=== PATIENT | female | born 1985 | race Caucasian/White ===

== ENCOUNTER 2023-12-26 10:19 | Emergency (ER) | payer MEDICAID ==
[~2023-12-26] VITALS: Ht 154.9 cm; Wt 75.3 kg
[2023-12-26 10:22] VITALS: BP 120/77; PULSE 73; RESP 18; TEMP 96.9; O2SAT 99
[2023-12-26] MEDS: predniSONE 20 MG TAB PO ONE (11:28)
[2023-12-26] MEDS: ACETAMINOPHEN EXTRA STRENGTH 500 MG TAB PO ONE (11:29)
[2023-12-26] MEDS: KETOROLAC 30 MG/ML VIAL IM ONE (11:31)
[2023-12-26 12:09] LABS: BASOPHILS # (AUTO) 0.1 K/uL (0.00-0.22); BASOPHILS % (AUTO) 0.7 % (0.0-2.0); EOSINOPHILS # (AUTO) 0.2 K/uL (0-0.4); EOSINOPHILS % (AUTO) 2.8 % (0.0-4.0); HEMATOCRIT 41.8 % (36-48); HEMOGLOBIN 14.6 g/dL (12.0-16.0); LYMPHOCYTES # (AUTO) 3.4 K/uL (2.5-16.5); LYMPHOCYTES % (AUTO) 38.2 % (20.5-51.1); MEAN CORPUSCULAR HEMOGLOBIN 30 pg (27-31); MEAN CORPUSCULAR HGB CONC 35 g/dL (33-37); MEAN CORPUSCULAR VOLUME 85.4 fL (80-94); MONOCYTES # (AUTO) 0.5 K/uL (0.8-1.0); NEUTROPHILS # (AUTO) 4.6 K/uL (1.8-7.7); NEUTROPHILS % (AUTO) 52.3 % (42.2-75.2); PLATELET COUNT (AUTO) 292 K/uL (140-450); WHITE BLOOD COUNT (AUTO) 8.9 K/uL (4.8-10.8)
[2023-12-26 12:36] LABS: ANION GAP 11.6 (8-16); CALCIUM 9.3 mg/dL (8.5-10.1); CARBON DIOXIDE 26.4 mmol/L (21-32); CREATININE 0.9 mg/dL (0.6-1.3)
[2023-12-26] MEDS ORDERED: PRED20TA5 PO (13:05)
[2023-12-26 13:37] VITALS: BP 118/81; PULSE 66; RESP 12; TEMP 96.9; O2SAT 97
== END 2023-12-26 13:37 | disposition home or self-care (01) ==
LOC: MED 10:19
DX: J20.9 Acute bronchitis, unspecified (principal); Z79.899 Other long term (current) drug therapy
CPT/HCPCS: 36415; 71045; 80048; 81025; 83880; 84484; 85025; 93005; 96372; 99285; J1885; J7512; Q0092